=== PATIENT | female | born 2000 | race Caucasian/White ===

== ENCOUNTER 2019-09-06 11:46 | Outpatient (CLI) | payer OTHER ==
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
== END 2019-09-06 11:47 | disposition home or self-care (01) ==
LOC: TBSIIMAG 11:46
PROVIDERS: ATTEND Neurological Surgery
DX: M54.2 Cervicalgia (principal)
CPT/HCPCS: 72040